=== PATIENT | male | born 1945 | race Caucasian/White ===

== ENCOUNTER 2020-03-09 01:24 | Emergency (ER) | payer MEDICARE, OTHER ==
[2020-03-09] MEDS ORDERED: Metoclopramide 10 MG/2 ML SDV IV ONE (01:39)
[2020-03-09] MEDS ORDERED: Sodium Chloride 0.9% 1,000 ML IV SCH (01:45)
--- NOTE | 2020-03-09 01:54 | EDM.PDOC ---
ED HPI GENERAL MEDICAL PROBLEM - General Chief Complaint: General Stated Complaint: feels ill Time Seen by Provider: 03/09/20 01:30 Source of Information: Reports: Patient History Limitations: Reports: No Limitations - History of Present Illness INITIAL COMMENTS - FREE TEXT/NARRATIVE: Patient is a 74 y/o male with PMHx significant for non-hodgkins lymphoma (chemo treatment 2 weeks ago in [place]), who presents with worsening headache x 5 days. He describes the headache as generalized and dull. Associated nausea, light-headedness, and loose stools. He denies chest pain, cough, shortness of breathing, vomiting, rash, vision changes, or numbness/tingling. He is prescribed pain medicine, but doesn't recall the name. - Related Data Allergies Allergy/AdvReac Type Severity Reaction Status Date / Time naproxen [From Naprosyn] Allergy Rash Verified 03/09/20 03:41 ED ROS GENERAL - Review of Systems Review Of Systems: See Below Constitutional: Reports: No Symptoms HEENT: Reports: No Symptoms Respiratory: Reports: No Symptoms Cardiovascular: Reports: No Symptoms GI/Abdominal: Reports: Nausea : Reports: No Symptoms Musculoskeletal: Reports: No Symptoms Skin: Reports: No Symptoms Neurological: Reports: Dizziness, Headache Psychiatric: Reports: No Symptoms ED EXAM, GENERAL - Physical Exam Exam: See Below Exam Limited By: No Limitations General Appearance: Alert, No Apparent Distress Eye Exam: Bilateral Eye: EOMI, PERRL Head: Atraumatic, Normocephalic Neck: Normal Inspection, Supple, Non-Tender, Full Range of Motion Respiratory/Chest: No Respiratory Distress, Lungs Clear, Normal Breath Sounds, No Accessory Muscle Use, Chest Non-Tender Cardiovascular: Normal Peripheral Pulses, Regular Rate, Rhythm, No Edema, No Murmur GI/Abdominal: Normal Bowel Sounds, Soft, Non-Tender, No Distention Extremities: Normal Inspection, Normal Range of Motion, Non-Tender, No Pedal Edema, Normal Capillary Refill Neurological: Alert, Oriented, CN II-XII Intact, Normal Cognition, Normal Gait, No Motor/Sensory Deficits Psychiatric: Normal Affect, Normal Mood Skin Exam: Warm, Dry, Intact, Normal Color, No Rash Lymphatic: No Adenopathy Course - Vital Signs Text/Narrative:: Tylenol and reglan given. 1 L NS bolus given. CT head and labs ordered. All labs and imaging negative. Will discharge home with percocet 5/325 mg PO every 6-8 hours as needed for pain (dispense 3 tabs). Follow up with oncology and PCP for chronic pain management. Drink lots of fluids. - Orders/Labs/Meds Orders: Active Orders 24 hr Category Date Time Status Head wo Cont [CT] Stat Exams 03/09/20 01:38 Taken Ketorolac [Toradol] Med 03/09/20 03:48 Once 30 mg IVPUSH ONETIME ONE Sodium Chloride 0.9% [Normal Saline] 1,000 ml Med 03/09/20 01:45 Active IV ASDIRECTED Medication Orders Sodium Chloride (Normal Saline) 1,000 mls @ 1,000 mls/hr IV ASDIRECTED CHANDANA Last Admin: 03/09/20 01:39 Dose: 1,000 mls/hr Documented by: VIKAS Ketorolac Tromethamine (Toradol) 30 mg IVPUSH ONETIME ONE Stop: 03/09/20 03:49 Labs: Laboratory Tests 03/09/20 03/09/20 03/09/20 Range/Units 02:40 02:40 02:45 WBC 10.4 (4.0-11.0) K/uL RBC 4.44 L (4.50-6.50) M/uL Hgb 14.6 (13.0-18.0) g/dL Hct 41.3 (40.0-54.0) % MCV 93 (76-96) fL MCH 32.9 H (27.0-32.0) pg MCHC 35.4 H (31.0-35.0) g/dL RDW 13.0 (11.0-16.0) % Plt Count 232 (150-400) K/uL MPV 10.5 H (6.0-10.0) fL Neut % (Auto) 84.1 H (45.0-70.0) % Lymph % (Auto) 7.2 L (20.0-40.0) % [place] % (Auto) 8.6 (3.0-10.0) % Eos % (Auto) 0.0 L (1.0-5.0) % Baso % (Auto) 0.1 (0.0-0.5) % Neut # (Auto) 8.77 H (2.00-7.50) K/uL Lymph # (Auto) 0.75 L (1.50-4.00) K/uL [place] # (Auto) 0.90 H (0.20-0.80) K/uL Eos # (Auto) 0.00 L (0.04-0.40) K/uL Baso # (Auto) 0.01 L (0.02-0.10) K/uL Sodium 134 L (136-145) mmol/L Potassium 3.4 L (3.5-5.1) mmol/L Chloride 96 L (98-107) mmol/L Carbon Dioxide 22.9 (21.0-32.0) mmol/L Anion Gap 18.5 H (5.0-15.0) mmol/L BUN 14 (8-26) mg/dL Creatinine 1.16 (0.70-1.30) mg/dL Est Cr Clr Drug Dosing TNP Estimated GFR (MDRD) > 60 (>60) MLS/MIN BUN/Creatinine Ratio 12.1 (6-25) Glucose 152 H (74-100) mg/dL Lactic Acid (0.4-2.0) mmol/L Calcium 9.5 (8.5-10.1) mg/dL Total Bilirubin 1.1 H (0.0-1.0) mg/dL AST 15 (15-37) U/L ALT 20 (12-78) U/L Alkaline Phosphatase 79 (46-116) U/L Total Protein 7.5 (6.4-8.2) g/dL Albumin 3.5 (3.4-5.0) g/dL Globulin 4.0 (2.2-4.2) g/dL Albumin/Globulin Ratio 0.9 (0.8-2.0) SARS CoV-2 RNA Rapid TEODORO Negative 03/09/20 Range/Units 02:45 WBC (4.0-11.0) K/uL RBC (4.50-6.50) M/uL Hgb (13.0-18.0) g/dL Hct (40.0-54.0) % MCV (76-96) fL MCH (27.0-32.0) pg MCHC (31.0-35.0) g/dL RDW (11.0-16.0) % Plt Count (150-400) K/uL MPV (6.0-10.0) fL Neut % (Auto) (45.0-70.0) % Lymph % (Auto) (20.0-40.0) % [place] % (Auto) (3.0-10.0) % Eos % (Auto) (1.0-5.0) % Baso % (Auto) (0.0-0.5) % Neut # (Auto) (2.00-7.50) K/uL Lymph # (Auto) (1.50-4.00) K/uL [place] # (Auto) (0.20-0.80) K/uL Eos # (Auto) (0.04-0.40) K/uL Baso # (Auto) (0.02-0.10) K/uL Sodium (136-145) mmol/L Potassium (3.5-5.1) mmol/L Chloride (98-107) mmol/L Carbon Dioxide (21.0-32.0) mmol/L Anion Gap (5.0-15.0) mmol/L BUN (8-26) mg/dL Creatinine (0.70-1.30) mg/dL Est Cr Clr Drug Dosing Estimated GFR (MDRD) (>60) MLS/MIN BUN/Creatinine Ratio (6-25) Glucose (74-100) mg/dL Lactic Acid 1.7 (0.4-2.0) mmol/L Calcium (8.5-10.1) mg/dL Total Bilirubin (0.0-1.0) mg/dL AST (15-37) U/L ALT (12-78) U/L Alkaline Phosphatase (46-116) U/L Total Protein (6.4-8.2) g/dL Albumin (3.4-5.0) g/dL Globulin (2.2-4.2) g/dL Albumin/Globulin Ratio (0.8-2.0) SARS CoV-2 RNA Rapid TEODORO Meds: Medications Generic Name Dose Route Start Last Admin Trade Name Freq PRN Reason Stop Dose Admin Sodium Chloride 1,000 mls @ 1,000 mls/hr 03/09/20 01:45 03/09/20 01:39 Normal Saline IV 1,000 mls/hr ASDIRECTED CHANDANA Administration Ketorolac Tromethamine 30 mg 11/20/20 03:48 Toradol IVPUSH 03/09/20 03:49 ONETIME ONE Discontinued Medications Generic Name Dose Route Start Last Admin Trade Name Fanny PRBoaz Reason Stop Dose Admin Metoclopramide HCl 20 mg 03/09/20 01:39 03/09/20 01:40 Reglan IV 03/09/20 01:40 20 mg ONETIME ONE Administration Departure - Departure Time of Disposition: 04:00 Disposition: Home, Self-Care 01 Condition: Good Clinical Impression: Headache Qualifiers: Headache type: unspecified Headache chronicity pattern: acute headache Intractability: not intractable Qualified Code(s): R51.9 - Headache, unspecified - Discharge Information *PRESCRIPTION DRUG MONITORING PROGRAM REVIEWED*: Not Applicable *COPY OF PRESCRIPTION DRUG MONITORING REPORT IN PATIENT RADHA: Not Applicable Forms: ED Department Discharge - My Orders Last 24 Hours: My Active Orders 03/09/20 01:38 Head wo Cont [CT] Stat 03/09/20 01:45 Sodium Chloride 0.9% [Normal Saline] 1,000 ml IV ASDIRECTED 03/09/20 03:48 Ketorolac [Toradol] 30 mg IVPUSH ONETIME ONE - Assessment/Plan Last 24 Hours: My Active Orders 03/09/20 01:38 Head wo Cont [CT] Stat 03/09/20 01:45 Sodium Chloride 0.9% [Normal Saline] 1,000 ml IV ASDIRECTED 03/09/20 03:48 Ketorolac [Toradol] 30 mg IVPUSH ONETIME ONE
[2020-03-09] MEDS ORDERED: Ketorolac 30 MG/ML SDV IVPUSH ONE (03:48)
[2020-03-09] MEDS ORDERED: Acetaminophen/oxyCODONE 325-5 MG Tab ONE (04:00)
[2020-03-09] MEDS ORDERED: Acetaminophen 325 MG Tab PO STA (06:11)
[2020-03-09 06:17] VITALS: BP 134/78; PULSE 106
--- NOTE | 2020-03-09 09:57 | CT ---
DATE OF SERVICE: 03/09/20 CLINICAL DATA: Headache UNENHANCED BRAIN CT: Multislice acquisition through the brain without IV contrast was performed. No priors. There is diffuse cerebral atrophy. No masses or mass effect. No intracranial hemorrhage. No evidence of acute or subacute infarct. No osseous abnormalities. IMPRESSION: No acute intracranial abnormalities. [id number] [facility]
== END 2020-03-09 04:20 | disposition home or self-care (01) ==
LOC: MERGE 01:24 → LB.ED 01:24
DX: R51.9 Headache, unspecified (principal); R42 Dizziness and giddiness; R11.0 Nausea; R19.7 Diarrhea, unspecified; Z88.8 Allergy status to other drugs, medicaments and biological substances; Z20.828 Contact with and (suspected) exposure to other viral communicable diseases
CPT/HCPCS: 36415; 70450; 80053; 83605; 85025; 96374; 96375; 99284-25; A9270-GY; J1885; J2765; J7030; U0002

== ENCOUNTER 2020-06-25 08:28 | Emergency (ER) | payer MEDICARE, OTHER ==
--- NOTE | 2020-06-25 09:35 | EDM.PDOC ---
ED HPI GENERAL MEDICAL PROBLEM - General Chief Complaint: Chest Pain Stated Complaint: CHEST PAIN Time Seen by Provider: 06/25/20 09:15 Source of Information: Reports: Patient, RN History Limitations: Reports: No Limitations - History of Present Illness Onset: Gradual, Other (2 months) Duration: Week(s): Location: Reports: Other (chest) Severity: Mild Improves with: Reports: Rest Worsens with: Reports: None Associated Symptoms: Reports: Chest Pain Treatments [employer] WRITER: Reports: Aspirin Mid-Sternal Chest Pain Score (Numeric/FACES): 2 - Related Data Allergies Allergy/AdvReac Type Severity Reaction Status Date / Time naproxen Allergy Hives Verified 06/25/20 08:47 Home Meds: Home Meds Aspirin [Adult Low Dose Aspirin EC] 81 mg PO DAILY 03/25/14 [History] Metoprolol Tartrate [Lopressor] 100 mg PO BID 03/25/14 [History] Ranitidine HCl 150 mg PO BID 03/25/14 [History] Tamsulosin HCl [Flomax] 2 tab PO DAILY 03/25/14 [History] atorvaSTATin Calcium [Atorvastatin Calcium] 10 mg PO DAILY 03/25/14 [History] Sennosides/Docusate Sodium [Senna-Docusate Sodium] 1 tab PO DAILY 09/11/15 [History] Zolpidem [Ambien] 5 mg PO BEDTIME PRN 06/25/20 [History] amLODIPine [Norvasc] 5 mg PO DAILY 06/25/20 [History] Past Medical History HEENT History: Reports: Hard of Hearing, Impaired Vision Other HEENT History: Patient has another chart Cardiovascular History: Reports: High Cholesterol, Hypertension Gastrointestinal History: Reports: GERD, Other (See Below) Other Gastrointestinal History: Acute Diverticulitis June 2015 Genitourinary History: Reports: Prostate Disorder Oncologic (Cancer) History: Reports: Non-Hodgkin's Lymphoma - Past Surgical History Cardiovascular Surgical History: Reports: Other (See Below) Other Cardiovascular Surgeries/Procedures: Has had 4 angiograms-no bypass or stent placements GI Surgical History: Reports: None Male Surgical History: Reports: None Social & Family History - Family History Family Medical History: No Pertinent Family History - Tobacco Use Tobacco Use Status *Q: Unknown Ever Used Tobacco Second Hand Smoke Exposure: No - Caffeine Use Caffeine Use: Reports: Coffee - Recreational Drug Use Recreational Drug Use: No ED ROS GENERAL - Review of Systems Review Of Systems: Comprehensive ROS is negative, except as noted in HPI. Cardiovascular: Reports: Chest Pain, Other (At rest) ED EXAM, GENERAL - Physical Exam Exam: See Below Exam Limited By: No Limitations General Appearance: Alert, No Apparent Distress Eye Exam: Bilateral Eye: PERRL Nose: Normal Inspection, Normal Mucosa Throat/Mouth: Normal Inspection, Normal Lips, Normal Teeth Head: Atraumatic, Normocephalic Neck: Normal Inspection, Supple, Non-Tender, Full Range of Motion Respiratory/Chest: No Respiratory Distress, Lungs Clear, Normal Breath Sounds Cardiovascular: Normal Peripheral Pulses, Regular Rate, Rhythm, No Edema Peripheral Pulses: 2+: Radial (L), Radial (R) GI/Abdominal: Normal Bowel Sounds, Soft, Non-Tender (Male) Exam: No Hernia Extremities: Normal Inspection, Normal Range of Motion, Non-Tender Neurological: Alert, Oriented, CN II-XII Intact, Normal Cognition, Normal Gait Psychiatric: Normal Affect, Normal Mood Skin Exam: Warm, Dry, Intact, Normal Color, No Rash Lymphatic: No Adenopathy Course - Vital Signs Last Recorded V/S: Last Vital Signs Temp 36.2 C 06/25/20 08:28 Pulse 73 06/25/20 08:31 Resp 14 06/25/20 08:31 BP 153/87 H 06/25/20 08:31 Pulse Ox 97 06/25/20 08:31 - Orders/Labs/Meds Orders: Active Orders 24 hr Category Date Time Status EKG Documentation Completion [RC] ASDIRECTED Care 06/25/20 08:47 Active Chest 1V Frontal [CR] Stat Exams 06/25/20 08:47 Taken Labs: Laboratory Tests 06/25/20 06/25/20 Range/Units 08:36 08:36 WBC 4.0 D (4.0-11.0) K/uL RBC 3.88 L (4.50-6.50) M/uL Hgb 13.0 (13.0-18.0) g/dL Hct 36.6 L (40.0-54.0) % MCV 94 (76-96) fL MCH 33.5 H (27.0-32.0) pg MCHC 35.5 H (31.0-35.0) g/dL RDW 13.3 (11.0-16.0) % Plt Count 128 L D (150-400) K/uL MPV 9.6 (6.0-10.0) fL Neut % (Auto) 69.6 (45.0-70.0) % Lymph % (Auto) 10.6 L (20.0-40.0) % [place] % (Auto) 19.6 H (3.0-10.0) % Eos % (Auto) 0.0 L (1.0-5.0) % Baso % (Auto) 0.2 (0.0-0.5) % Neut # (Auto) 2.81 (2.00-7.50) K/uL Lymph # (Auto) 0.43 L (1.50-4.00) K/uL [place] # (Auto) 0.79 (0.20-0.80) K/uL Eos # (Auto) 0.00 L (0.04-0.40) K/uL Baso # (Auto) 0.01 L (0.02-0.10) K/uL Sodium 140 (136-145) mmol/L Potassium 3.7 (3.5-5.1) mmol/L Chloride 105 (98-107) mmol/L Carbon Dioxide 25.9 (21.0-32.0) mmol/L Anion Gap 12.8 (5.0-15.0) mmol/L BUN 12 D (8-26) mg/dL Creatinine 0.87 (0.70-1.30) mg/dL Est Cr Clr Drug Dosing 81.77 mL/min Estimated GFR (MDRD) > 60 (>60) MLS/MIN BUN/Creatinine Ratio 13.8 (6-25) Glucose 102 H (74-100) mg/dL Calcium 8.7 (8.5-10.1) mg/dL Total Bilirubin 0.6 D (0.0-1.0) mg/dL AST 23 (15-37) U/L ALT 20 (12-78) U/L Alkaline Phosphatase 74 (46-116) U/L Troponin I < 0.017 (0.000-0.060) ng/mL B-Natriuretic Peptide 148 H (0-125) pg/mL Total Protein 7.1 (6.4-8.2) g/dL Albumin 3.7 (3.4-5.0) g/dL Globulin 3.4 (2.2-4.2) g/dL Albumin/Globulin Ratio 1.1 (0.8-2.0) Departure - Departure Time of Disposition: 09:40 Disposition: Home, Self-Care 01 Condition: Good Clinical Impression: Angina at rest Instructions: Nonspecific Chest Pain, Adult, [id number], Angina, [id number], Decision Aid - Coronary Artery Disease Referrals: PCP,None [Primary Care Provider] - Forms: ED Department Discharge Additional Instructions: Contact Dr. Wilson office at [facility] today to schedule appointment for further evaluation. Take nitroglycerin as needed for chest pain as directed: 1 tablet dissolved under tongue, every 5 minutes for up to 3 doses. Should pain return, worsen, or persist, return to ER for further evaluation. Diet and activity as tolerated. Follow up as instructed. Call with any questions. Sepsis Event Note (ED) - Evaluation Sepsis Screening Result: No Definite Risk - Focused Exam Vital Signs: Vital Signs Temp Pulse Resp BP Pulse Ox 06/25/20 08:31 73 14 153/87 H 97 06/25/20 08:28 36.2 C 73 14 136/77 98 - My Orders Last 24 Hours: My Active Orders 06/25/20 08:47 EKG Documentation Completion [RC] ASDIRECTED Chest 1V Frontal [CR] Stat - Assessment/Plan Last 24 Hours: My Active Orders 06/25/20 08:47 EKG Documentation Completion [RC] ASDIRECTED Chest 1V Frontal [CR] Stat Assessment:: Angina Plan: Follow up with Dr. Wilson this week, call today. Take Nitro if needed for pain. Return to ED for new or worsening symptoms.
--- NOTE | 2020-06-25 10:02 | CR ---
DATE OF SERVICE: 06/25/2020 CLINICAL DATA: Chest pain PA and lateral chest: Comparison is made to a prior exam dated 25 April 2020. The patient is in an apical lordotic position. The heart size is stable. There is calcification of the aortic arch. The pulmonary vasculature does appear to be more prominent than on the prior exam with some cephalization of flow suggesting mild pulmonary venous congestion. There is persistent eventration of the right hemidiaphragm with atelectatic changes in the right lung base. The lungs are otherwise clear. No pneumothorax. No pleural effusions. There is a mass posterior to the heart containing an air-fluid level consistent with a large hiatal hernia. Thank you for allowing us to participate in the care of your patient MTDD
[2020-06-25 11:10] VITALS: BP 151/87; PULSE 72
[2020-06-26] MEDS ORDERED: Sodium Chloride 0.9% 10 ML Syringe FLUSH PRN (11:14)
== END 2020-06-25 09:37 | disposition home or self-care (01) ==
LOC: LB.ED 08:28
DX: I20.9 Angina pectoris, unspecified (principal); E78.00 Pure hypercholesterolemia, unspecified; I10 Essential (primary) hypertension; K21.9 Gastro-esophageal reflux disease without esophagitis; Z88.8 Allergy status to other drugs, medicaments and biological substances; Z79.82 Long term (current) use of aspirin; Z79.899 Other long term (current) drug therapy
CPT/HCPCS: 36415; 71045; 80053; 83880; 84484; 85025; 93005; 99284; 99285-25

== ENCOUNTER 2021-04-30 07:22 | Emergency (ER) | payer MEDICARE, OTHER ==
[2021-04-30 07:44] VITALS: BP 142/95; PULSE 85
== END 2021-04-30 08:40 | disposition home or self-care (01) ==
LOC: LB.ED 07:22
DX: U07.1 COVID-19 (principal); J02.8 Acute pharyngitis due to other specified organisms; B97.89 Other viral agents as the cause of diseases classified elsewhere; I10 Essential (primary) hypertension; E78.00 Pure hypercholesterolemia, unspecified; K21.9 Gastro-esophageal reflux disease without esophagitis; N42.9 Disorder of prostate, unspecified; Z88.6 Allergy status to analgesic agent; Z79.82 Long term (current) use of aspirin; Z79.899 Other long term (current) drug therapy
CPT/HCPCS: 99283; U0002

== ENCOUNTER 2021-05-01 04:58 | Emergency (ER) | payer MEDICARE, OTHER ==
[2021-05-01 05:20] VITALS: BP 152/88; PULSE 120
[2021-05-01] MEDS ORDERED: Ketorolac 30 MG/ML SDV IM ONE (05:37)
[2021-05-01] MEDS ORDERED: methylPREDNISolone Sodium Succinate 125 MG/2 ML SDV IM ONE (05:39)
[2021-05-01] MEDS ORDERED: Ketorolac 30 MG/ML SDV ONE (06:00)
[2021-05-01] MEDS ORDERED: methylPREDNISolone Sodium Succinate 125 MG/2 ML SDV ONE (06:00)
[2021-05-01] MEDS ORDERED: traMADol 50 MG Tab ONE (06:00)
== END 2021-05-01 06:03 | disposition home or self-care (01) ==
LOC: LB.ED 04:58
DX: U07.1 COVID-19 (principal); J02.8 Acute pharyngitis due to other specified organisms; E78.00 Pure hypercholesterolemia, unspecified; I10 Essential (primary) hypertension; K21.9 Gastro-esophageal reflux disease without esophagitis; Z87.891 Personal history of nicotine dependence; Z86.16 Personal history of COVID-19; Z88.5 Allergy status to narcotic agent; Z79.82 Long term (current) use of aspirin; Z79.899 Other long term (current) drug therapy
CPT/HCPCS: 96372; 99283; A9270-GY; J1885; J2930

== ENCOUNTER 2021-08-01 13:10 | Emergency (ER) | payer MEDICARE, OTHER ==
[2021-08-01] MEDS: Aspirin 81 MG Tab.Chew PO ONE ×3 (13:25→17:50)
[2021-08-01] MEDS: Nitroglycerin 0.4 MG Tab.SL SL PRN ×3 (13:30→13:45)
[2021-08-01 14:04] VITALS: PULSE 99
[2021-08-01 17:46] VITALS: BP 158/94
== END 2021-08-01 15:30 | disposition home or self-care (01) ==
LOC: LB.ED 13:10
DX: R07.89 Other chest pain (principal); K21.9 Gastro-esophageal reflux disease without esophagitis; I10 Essential (primary) hypertension; Z79.82 Long term (current) use of aspirin; Z86.16 Personal history of COVID-19; Z88.8 Allergy status to other drugs, medicaments and biological substances; Z79.899 Other long term (current) drug therapy
CPT/HCPCS: 36415; 71045; 80048; 84484; 93005; 99283; 99285-25; A9270-GY

== ENCOUNTER 2022-01-29 09:16 | Emergency (ER) | payer MEDICARE, OTHER ==
[2022-01-29 10:10] LABS: ESTIMATED GFR 91 mL/min (>60)
[2022-01-29 14:58] VITALS: BP 151/81; PULSE 67
== END 2022-01-29 10:50 | disposition home or self-care (01) ==
LOC: LB.ED 09:16
DX: E87.1 Hypo-osmolality and hyponatremia (principal); E78.00 Pure hypercholesterolemia, unspecified; I10 Essential (primary) hypertension; K21.9 Gastro-esophageal reflux disease without esophagitis; Z88.8 Allergy status to other drugs, medicaments and biological substances; Z79.82 Long term (current) use of aspirin; Z79.899 Other long term (current) drug therapy
CPT/HCPCS: 36415; 71045; 80053; 84484; 85025; 85610; 93005; 93010; 99282; 99285

== ENCOUNTER 2022-11-26 11:41 | Emergency (ER) | payer MEDICARE, OTHER ==
[2022-11-26 12:12] LABS: BASOPHILS ABSOLUTE AUTO 0.02 K/uL (0.02-0.10); BASOPHILS PERCENT AUTO 0.2 % (0.0-0.5); EOSINOPHILS ABSOLUTE AUTO 0.16 K/uL (0.04-0.40); EOSINOPHILS PERCENT AUTO 1.8 % (1.0-5.0); HEMATOCRIT 39.8 % (40.0-54.0); LYMPHOCYTES ABSOLUTE AUTO 1.83 K/uL (1.50-4.00); LYMPHOCYTES PERCENT AUTO 21.1 % (20.0-40.0); MEAN CORPUSCULAR HEMOGLOBIN 33.2 pg (27.0-32.0); MEAN CORPUSCULAR HGB CONC 35.2 g/dL (31.0-35.0); MEAN CORPUSCULAR VOLUME 94 fL (76-96); MEAN PLATELET VOLUME 10.6 fL (6.0-10.0); MONOCYTES ABSOLUTE AUTO 0.64 K/uL (0.20-0.80); MONOCYTES PERCENT AUTO 7.4 % (3.0-10.0); NEUTROPHILS ABSOLUTE AUTO 6.01 K/uL (2.00-7.50); NEUTROPHILS PERCENT AUTO 69.5 % (45.0-70.0); PLATELET COUNT,PLT 197 K/uL (150-400); RED BLOOD CELL COUNT 4.22 M/uL (4.50-6.50); RED CELL DISTRIBUTION WIDTH 12.3 % (11.0-16.0); WHITE BLOOD CELL COUNT,WBC 8.7 K/uL (4.0-11.0)
[2022-11-26] MEDS ORDERED: Sodium Chloride 0.9% 10 ML Syringe FLUSH PRN (12:19)
[2022-11-26 12:32] LABS: PROTHROMBIN TIME 10.2 sec (9.0-11.5)
[2022-11-26 12:34] LABS: A/G RATIO 1.1 (0.8-2.0); ALBUMIN 3.8 g/dL (3.4-5.0); ANION GAP 12.2 mmol/L (5.0-15.0); BILIRUBIN TOTAL 0.8 mg/dL (0.0-1.0); BUN/CREATININE RATIO 16.7 (6-25); CALCIUM 9.3 mg/dL (8.5-10.1); CARBON DIOXIDE,CO2 26.9 mmol/L (21.0-32.0); CREATININE 0.96 mg/dL (0.70-1.30); EST CRCL DRUG DOSING (CG) 72.97 mL/min; POTASSIUM,K 3.1 mmol/L (3.5-5.1); PROTEIN TOTAL,TP 7.4 g/dL (6.4-8.2); TROPONIN I HIGH SENSITIVITY 4.4 pg/ml (<=60.4)
[2022-11-26 15:01] VITALS: BP 151/82; PULSE 84
== END 2022-11-26 12:55 | disposition home or self-care (01) ==
LOC: LB.ED 11:41
DX: R07.9 Chest pain, unspecified (principal); Z87.891 Personal history of nicotine dependence; Z86.16 Personal history of COVID-19; I10 Essential (primary) hypertension; E78.00 Pure hypercholesterolemia, unspecified; M19.90 Unspecified osteoarthritis, unspecified site; K21.9 Gastro-esophageal reflux disease without esophagitis; Z79.899 Other long term (current) drug therapy; Z79.82 Long term (current) use of aspirin; Z88.8 Allergy status to other drugs, medicaments and biological substances
CPT/HCPCS: 36415; 71045; 80053; 83880; 84484; 85025; 85610; 85730; 93005; 93010; 99283; 99285

== ENCOUNTER 2023-03-20 12:50 | Emergency (ER) | payer MEDICARE, OTHER ==
[2023-03-20] MEDS ORDERED: Sodium Chloride 0.9% 10 ML Syringe FLUSH PRN (12:56)
[2023-03-20 13:13] LABS: HEMATOCRIT 38.4 % (40.0-54.0); HEMOGLOBIN 13.5 g/dL (13.0-18.0); MEAN CORPUSCULAR HEMOGLOBIN 33.6 pg (27.0-32.0); MEAN CORPUSCULAR HGB CONC 35.2 g/dL (31.0-35.0); MEAN PLATELET VOLUME 10.4 fL (6.0-10.0); RED BLOOD CELL COUNT 4.02 M/uL (4.50-6.50); RED CELL DISTRIBUTION WIDTH 12.1 % (11.0-16.0); WHITE BLOOD CELL COUNT,WBC 7.2 K/uL (4.0-11.0)
[2023-03-20 13:36] LABS: A/G RATIO 1.2 (0.8-2.0); ALBUMIN 3.7 g/dL (3.4-5.0); BUN/CREATININE RATIO 18.5 (6-25); CALCIUM 9.1 mg/dL (8.5-10.1); CARBON DIOXIDE,CO2 24.5 mmol/L (21.0-32.0); CREATININE 1.08 mg/dL (0.70-1.30); EST CRCL DRUG DOSING (CG) 62.94 mL/min; MAGNESIUM 1.6 mg/dL (1.8-2.4); PHOSPHORUS 2.4 mg/dL (2.5-4.9); POTASSIUM,K 3.5 mmol/L (3.5-5.1); PROTEIN TOTAL,TP 6.9 g/dL (6.4-8.2); TROPONIN I HIGH SENSITIVITY 7.9 pg/ml (<=60.4)
[2023-03-20] MEDS ORDERED: Sodium Chloride 0.9% 1,000 ML IV SCH (16:30)
[2023-03-20 17:51] VITALS: BP 151/85; PULSE 72
== END 2023-03-20 17:25 | disposition home or self-care (01) ==
LOC: LB.ED 12:50
DX: E83.42 Hypomagnesemia (principal); I10 Essential (primary) hypertension; E78.00 Pure hypercholesterolemia, unspecified; K21.9 Gastro-esophageal reflux disease without esophagitis; Z88.6 Allergy status to analgesic agent; Z86.16 Personal history of COVID-19; Z79.82 Long term (current) use of aspirin; Z79.899 Other long term (current) drug therapy
CPT/HCPCS: 36415; 70450; 71045; 71250; 74176; 80053; 83735; 84100; 84484; 85027; 93005; 93010; 96365; 99283; 99285-25; J3475; J7030

== ENCOUNTER 2023-04-10 08:51 | Emergency (ER) | payer OTHER, MEDICARE ==
[2023-04-10] MEDS ORDERED: Sodium Chloride 0.9% 10 ML Syringe FLUSH PRN (09:02)
[2023-04-10] MEDS: Sodium Chloride 0.9% 500 ML IV ONE (09:20)
[2023-04-10 09:23] LABS: BASOPHILS ABSOLUTE AUTO 0.02 K/uL (0.02-0.10); BASOPHILS PERCENT AUTO 0.3 % (0.0-0.5); EOSINOPHILS ABSOLUTE AUTO 0.23 K/uL (0.04-0.40); EOSINOPHILS PERCENT AUTO 3.3 % (1.0-5.0); HEMATOCRIT 37.3 % (40.0-54.0); HEMOGLOBIN 13.1 g/dL (13.0-18.0); LYMPHOCYTES ABSOLUTE AUTO 1.58 K/uL (1.50-4.00); LYMPHOCYTES PERCENT AUTO 22.6 % (20.0-40.0); MEAN CORPUSCULAR HEMOGLOBIN 33.2 pg (27.0-32.0); MEAN CORPUSCULAR HGB CONC 35.1 g/dL (31.0-35.0); MEAN CORPUSCULAR VOLUME 94 fL (76-96); MONOCYTES PERCENT AUTO 11.4 % (3.0-10.0); NEUTROPHILS ABSOLUTE AUTO 4.37 K/uL (2.00-7.50); NEUTROPHILS PERCENT AUTO 62.4 % (45.0-70.0); PLATELET COUNT,PLT 222 K/uL (150-400); RED BLOOD CELL COUNT 3.95 M/uL (4.50-6.50); RED CELL DISTRIBUTION WIDTH 11.7 % (11.0-16.0)
[2023-04-10 09:46] LABS: A/G RATIO 1.1 (0.8-2.0); ALBUMIN 3.7 g/dL (3.4-5.0); ANION GAP 15.4 mmol/L (5.0-15.0); BILIRUBIN TOTAL 0.7 mg/dL (0.0-1.0); BUN/CREATININE RATIO 11.5 (6-25); CALCIUM 9.6 mg/dL (8.5-10.1); CARBON DIOXIDE,CO2 24.4 mmol/L (21.0-32.0); CREATININE 1.04 mg/dL (0.70-1.30); EST CRCL DRUG DOSING (CG) 65.36 mL/min; MAGNESIUM 1.8 mg/dL (1.8-2.4); POTASSIUM,K 3.8 mmol/L (3.5-5.1); PROTEIN TOTAL,TP 7.1 g/dL (6.4-8.2); TROPONIN I HIGH SENSITIVITY 4.2 pg/ml (<=60.4)
[2023-04-10] MEDS ORDERED: ALPRAZolam 0.25 MG Tab ONE (09:50)
[2023-04-10] MEDS: ALPRAZolam 0.25 MG Tab PO ONE (09:50)
[2023-04-10 11:10] VITALS: BP 161/91; PULSE 71
== END 2023-04-10 10:30 | disposition home or self-care (01) ==
LOC: LB.ED 08:51
DX: F41.9 Anxiety disorder, unspecified (principal); I10 Essential (primary) hypertension; E78.00 Pure hypercholesterolemia, unspecified; K21.9 Gastro-esophageal reflux disease without esophagitis; M19.90 Unspecified osteoarthritis, unspecified site; Z86.16 Personal history of COVID-19; Z79.82 Long term (current) use of aspirin; Z79.899 Other long term (current) drug therapy
CPT/HCPCS: 36415; 80053; 83735; 84484; 85025; 93005; 93010; 96360; 99283; 99285; A9270; J7040

== ENCOUNTER 2023-04-14 08:10 | Emergency (ER) | payer MEDICARE, OTHER ==
[2023-04-14] MEDS ORDERED: Aspirin 81 MG Tab.Chew PO ONE (08:21)
[2023-04-14] MEDS ORDERED: hydrOXYzine HCl 25 MG Tab PO ONE (08:22)
[2023-04-14] MEDS ORDERED: Sodium Chloride 0.9% 10 ML Syringe FLUSH PRN ×2 (08:23→08:24)
[2023-04-14 09:01] VITALS: BP 141/92; PULSE 70
== END 2023-04-14 09:20 | disposition home or self-care (01) ==
LOC: LB.ED 08:10
DX: F41.9 Anxiety disorder, unspecified (principal); R45.89 Other symptoms and signs involving emotional state; I10 Essential (primary) hypertension; E78.00 Pure hypercholesterolemia, unspecified; K21.9 Gastro-esophageal reflux disease without esophagitis; M19.90 Unspecified osteoarthritis, unspecified site; Z88.6 Allergy status to analgesic agent; Z86.16 Personal history of COVID-19; Z79.82 Long term (current) use of aspirin; Z79.899 Other long term (current) drug therapy
CPT/HCPCS: 36415; 84484; 93005; 99285; A9270-GY

== ENCOUNTER 2023-08-01 18:24 | Emergency (ER) | payer MEDICARE, OTHER ==
[2023-08-01] MEDS ORDERED: Sodium Chloride 0.9% 10 ML Syringe FLUSH PRN (18:41)
[2023-08-01 19:15] LABS: HEMATOCRIT 40.3 % (40.0-54.0); HEMOGLOBIN 14.2 g/dL (13.0-18.0); MEAN CORPUSCULAR HGB CONC 35.2 g/dL (31.0-35.0); MEAN PLATELET VOLUME 10.2 fL (6.0-10.0); RED BLOOD CELL COUNT 4.3 M/uL (4.50-6.50); RED CELL DISTRIBUTION WIDTH 12.4 % (11.0-16.0); WHITE BLOOD CELL COUNT,WBC 7.9 K/uL (4.0-11.0)
[2023-08-01] MEDS: Sodium Chloride 0.9% 1,000 ML IV SCH (19:15)
[2023-08-01] MEDS: LORazepam 1 MG Tab ONE (19:15)
[2023-08-01] MEDS: LORazepam 2 MG/ML SDV ONE (19:16)
[2023-08-01] MEDS: LORazepam 2 MG/ML SDV IVPUSH ONE (19:17)
[2023-08-01 19:34] LABS: ANION GAP 13.1 mmol/L (5.0-15.0); BLOOD UREA NITROGEN,BUN 10 mg/dL (8-26); CALCIUM 9.3 mg/dL (8.5-10.1); CARBON DIOXIDE,CO2 26.4 mmol/L (21.0-32.0); CHLORIDE,CL 100 mmol/L (98-107); CREATININE 0.77 mg/dL (0.70-1.30); ESTIMATED GFR 93 mL/min (>60); GLUCOSE RANDOM 101 mg/dL (74-100); MAGNESIUM 1.5 mg/dL (1.8-2.4); PHOSPHORUS 2.4 mg/dL (2.5-4.9); POTASSIUM,K 3.5 mmol/L (3.5-5.1); SODIUM,NA 136 mmol/L (136-145); TROPONIN I HIGH SENSITIVITY 5.5 pg/ml (<=60.4)
[2023-08-01] MEDS: Metoprolol Tartrate 50 MG Tab PO SCH (20:15)
[2023-08-01] MEDS: Metoprolol Tartrate 50 MG Tab ONE (20:37)
[2023-08-01 21:09] VITALS: BP 152/86; PULSE 64
== END 2023-08-01 21:40 | disposition home or self-care (01) ==
LOC: LB.ED 18:24
DX: E83.42 Hypomagnesemia (principal); F10.90 Alcohol use, unspecified, uncomplicated; F41.9 Anxiety disorder, unspecified; E78.00 Pure hypercholesterolemia, unspecified; I10 Essential (primary) hypertension; K21.9 Gastro-esophageal reflux disease without esophagitis; E66.9 Obesity, unspecified; Z88.6 Allergy status to analgesic agent; Z79.82 Long term (current) use of aspirin; Z79.899 Other long term (current) drug therapy; Z86.19 Personal history of other infectious and parasitic diseases; Z86.16 Personal history of COVID-19; Z78.9 Other specified health status; Y90.9 Presence of alcohol in blood, level not specified
CPT/HCPCS: 36415; 80048; 83735; 84100; 84443; 84484; 85027; 85379; 93005; 96361; 96365; 96375; 99285-25; A9270-GY; J2060; J3475; J7030

== ENCOUNTER 2023-09-24 12:25 | Day surgery (SDC) | payer MEDICARE, OTHER ==
[2023-09-24] MEDS: Sodium Chloride 0.9% 1,000 ML IV SCH (13:21)
[2023-09-24] MEDS ORDERED: Propofol 200 MG/20 ML SDV ONE (14:45)
[2023-09-24 15:03] VITALS: BP 125/67; PULSE 69
== END 2023-09-24 15:35 | disposition home or self-care (01) ==
LOC: LB.SDS 12:25
PROVIDERS: ATTEND Surgery
DX: K31.89 Other diseases of stomach and duodenum (principal); I10 Essential (primary) hypertension; K21.9 Gastro-esophageal reflux disease without esophagitis; E78.00 Pure hypercholesterolemia, unspecified; N40.0 Benign prostatic hyperplasia without lower urinary tract symptoms; Z79.82 Long term (current) use of aspirin; Z79.899 Other long term (current) drug therapy
CPT/HCPCS: J2704; J7030

== ENCOUNTER 2024-02-12 19:10 | Emergency (ER) | payer OTHER, MEDICARE ==
[2024-02-12] MEDS: Sodium Chloride 0.9% 10 ML Syringe FLUSH PRN (19:25)
[2024-02-12] MEDS: Aspirin 81 MG Tab.Chew PO ONE (19:36)
[2024-02-12 20:27] LABS: HEMOGLOBIN 12.8 g/dL (13.0-18.0); MEAN CORPUSCULAR HEMOGLOBIN 33.2 pg (27.0-32.0); MEAN CORPUSCULAR HGB CONC 34.6 g/dL (31.0-35.0); MEAN PLATELET VOLUME 10.5 fL (6.0-10.0); RED BLOOD CELL COUNT 3.85 M/uL (4.50-6.50); RED CELL DISTRIBUTION WIDTH 12.2 % (11.0-16.0); WHITE BLOOD CELL COUNT,WBC 7.3 K/uL (4.0-11.0)
[2024-02-12 20:39] LABS: ANION GAP 12.6 mmol/L (5.0-15.0); BUN/CREATININE RATIO 12.6 (6-25); CARBON DIOXIDE,CO2 28.1 mmol/L (21.0-32.0); CREATININE 0.87 mg/dL (0.70-1.30); EST CRCL DRUG DOSING (CG) 79.28 mL/min; MAGNESIUM 1.7 mg/dL (1.8-2.4); POTASSIUM,K 3.7 mmol/L (3.5-5.1); TROPONIN I HIGH SENSITIVITY 5.2 pg/ml (<=60.4)
[2024-02-12 21:55] VITALS: BP 153/96; PULSE 73
== END 2024-02-12 21:38 | disposition home or self-care (01) ==
LOC: LB.ED 19:12
DX: R07.89 Other chest pain (principal); I10 Essential (primary) hypertension; E78.00 Pure hypercholesterolemia, unspecified; K21.9 Gastro-esophageal reflux disease without esophagitis; E66.9 Obesity, unspecified; Z86.16 Personal history of COVID-19; Z79.899 Other long term (current) drug therapy; Z79.82 Long term (current) use of aspirin; Z79.01 Long term (current) use of anticoagulants; Z88.6 Allergy status to analgesic agent; Z68.31 Body mass index [BMI] 31.0-31.9, adult
CPT/HCPCS: 36415; 71045; 80048; 83735; 84443; 84484; 85027; 93005; 93010; 99283; 99285; A9270-GY; J3490

== ENCOUNTER 2024-03-29 10:35 | Emergency (ER) | payer OTHER, MEDICARE ==
[2024-03-29] MEDS ORDERED: Sodium Chloride 0.9% 10 ML Syringe FLUSH PRN (10:48)
[2024-03-29] MEDS: Aspirin 81 MG Tab.Chew PO ONE (10:54)
[2024-03-29] MEDS: diazePAM 5 MG/ML MDV IV ONE (11:03)
[2024-03-29 11:05] LABS: HEMATOCRIT 39.8 % (40.0-54.0); HEMOGLOBIN 13.8 g/dL (13.0-18.0); MEAN CORPUSCULAR HEMOGLOBIN 33.2 pg (27.0-32.0); MEAN CORPUSCULAR HGB CONC 34.7 g/dL (31.0-35.0); MEAN PLATELET VOLUME 10.2 fL (6.0-10.0); RED BLOOD CELL COUNT 4.16 M/uL (4.50-6.50); RED CELL DISTRIBUTION WIDTH 12.2 % (11.0-16.0); WHITE BLOOD CELL COUNT,WBC 8.7 K/uL (4.0-11.0)
[2024-03-29 11:32] LABS: ALBUMIN 3.6 g/dL (3.4-5.0); ANION GAP 12.9 mmol/L (5.0-15.0); BILIRUBIN TOTAL 0.7 mg/dL (0.0-1.0); BUN/CREATININE RATIO 14.1 (6-25); CALCIUM 9.6 mg/dL (8.5-10.1); CREATININE 0.99 mg/dL (0.70-1.30); EST CRCL DRUG DOSING (CG) 69.67 mL/min; POTASSIUM,K 3.9 mmol/L (3.5-5.1); PROTEIN TOTAL,TP 7.1 g/dL (6.4-8.2); TROPONIN I HIGH SENSITIVITY 5.9 pg/ml (<=60.4)
[2024-03-29 14:11] VITALS: BP 164/101; PULSE 75
== END 2024-03-29 14:00 | disposition home or self-care (01) ==
LOC: LB.ED 10:35
DX: F41.9 Anxiety disorder, unspecified (principal); I10 Essential (primary) hypertension; E78.00 Pure hypercholesterolemia, unspecified; K21.9 Gastro-esophageal reflux disease without esophagitis; Z86.16 Personal history of COVID-19; Z79.899 Other long term (current) drug therapy; Z79.01 Long term (current) use of anticoagulants; Z79.82 Long term (current) use of aspirin; Z88.6 Allergy status to analgesic agent
CPT/HCPCS: 36415; 71045; 80053; 83735; 83880; 84484; 85027; 85379; 93005; 96374; 96376; 99285-25; J3360

== ENCOUNTER 2024-10-04 18:33 | Emergency (ER) | payer MEDICARE, OTHER ==
[2024-10-04] MEDS: diazePAM 5 MG/ML MDV IV ONE (19:13)
[2024-10-04 19:15] LABS: BASOPHILS ABSOLUTE AUTO 0.02 K/uL (0.02-0.10); BASOPHILS PERCENT AUTO 0.3 % (0.0-0.5); EOSINOPHILS ABSOLUTE AUTO 0.19 K/uL (0.04-0.40); EOSINOPHILS PERCENT AUTO 2.7 % (1.0-5.0); HEMATOCRIT 37.2 % (40.0-54.0); HEMOGLOBIN 13.1 g/dL (13.0-18.0); LYMPHOCYTES ABSOLUTE AUTO 1.62 K/uL (1.50-4.00); LYMPHOCYTES PERCENT AUTO 22.6 % (20.0-40.0); MEAN CORPUSCULAR HEMOGLOBIN 32.7 pg (27.0-32.0); MEAN CORPUSCULAR HGB CONC 35.2 g/dL (31.0-35.0); MEAN CORPUSCULAR VOLUME 93 fL (76-96); MEAN PLATELET VOLUME 10.1 fL (6.0-10.0); MONOCYTES ABSOLUTE AUTO 0.74 K/uL (0.20-0.80); MONOCYTES PERCENT AUTO 10.3 % (3.0-10.0); NEUTROPHILS ABSOLUTE AUTO 4.59 K/uL (2.00-7.50); NEUTROPHILS PERCENT AUTO 64.1 % (45.0-70.0); PLATELET COUNT,PLT 202 K/uL (150-400); RED BLOOD CELL COUNT 4.01 M/uL (4.50-6.50); RED CELL DISTRIBUTION WIDTH 11.9 % (11.0-16.0); WHITE BLOOD CELL COUNT,WBC 7.2 K/uL (4.0-11.0)
[2024-10-04 19:37] LABS: PTT,PARTIAL THROMBOPLSTIN TIME 27.5 SECONDS (24.4-33.2)
[2024-10-04 19:48] LABS: A/G RATIO 1.1 (0.8-2.0); ALBUMIN 3.7 g/dL (3.4-5.0); BILIRUBIN TOTAL 0.7 mg/dL (0.0-1.0); BUN/CREATININE RATIO 14.1 (6-25); CALCIUM 9.7 mg/dL (8.5-10.1); CARBON DIOXIDE,CO2 28.2 mmol/L (21.0-32.0); CREATININE 0.99 mg/dL (0.70-1.30); EST CRCL DRUG DOSING (CG) 68.59 mL/min; MAGNESIUM 1.9 mg/dL (1.8-2.4); POTASSIUM,K 4.2 mmol/L (3.5-5.1); PROTEIN TOTAL,TP 7.2 g/dL (6.4-8.2); TROPONIN I HIGH SENSITIVITY 5.4 pg/ml (<=60.4)
[2024-10-04 19:50] LABS: PROTHROMBIN TIME 10.9 sec (9.0-11.5)
[2024-10-05 00:12] VITALS: BP 127/79; PULSE 70
[2024-10-05] MEDS ORDERED: Sodium Chloride 0.9% 10 ML Syringe FLUSH PRN (00:17)
== END 2024-10-04 20:15 | disposition home or self-care (01) ==
LOC: LB.ED 18:33
DX: F41.9 Anxiety disorder, unspecified (principal); I10 Essential (primary) hypertension; E78.00 Pure hypercholesterolemia, unspecified; K21.9 Gastro-esophageal reflux disease without esophagitis; E66.9 Obesity, unspecified; Z68.31 Body mass index [BMI] 31.0-31.9, adult; Z86.16 Personal history of COVID-19; Z79.899 Other long term (current) drug therapy; Z79.84 Long term (current) use of oral hypoglycemic drugs; Z88.8 Allergy status to other drugs, medicaments and biological substances
CPT/HCPCS: 36415; 71045; 80053; 83735; 84484; 85025; 85379; 85610; 85730; 93005; 93010; 96374; 99284; 99285-25; J3360

== ENCOUNTER 2024-10-06 21:32 | Emergency (ER) | payer MEDICARE, OTHER ==
[~2024-10-06 21:32] MED LIST: diazePAM 5 MG Tab ONE
[2024-10-06] MEDS: diazePAM 5 MG/ML MDV IV ONE ×2 (21:52→22:19)
[2024-10-06 23:15] VITALS: BP 130/77; PULSE 62
== END 2024-10-06 22:40 | disposition home or self-care (01) ==
LOC: LB.ED 21:32
DX: F41.9 Anxiety disorder, unspecified (principal); E78.00 Pure hypercholesterolemia, unspecified; I10 Essential (primary) hypertension; Z88.5 Allergy status to narcotic agent; Z79.82 Long term (current) use of aspirin; Z79.899 Other long term (current) drug therapy; Z79.01 Long term (current) use of anticoagulants; Z86.16 Personal history of COVID-19
CPT/HCPCS: 96374; 96376; 99283; A9270; J3360; 99282

== ENCOUNTER 2024-10-07 18:10 | Emergency (ER) | payer MEDICARE, OTHER ==
[2024-10-07 18:48] VITALS: BP 148/86; PULSE 75
[2024-10-07] MEDS: Lidocaine 2% Jelly 5 ML Urojet ONE (19:11)
[2024-10-07] MEDS: Lidocaine 2% Jelly 10 ML Urojet MUCMEM ONE (19:14)
[2024-10-07] MEDS: Magnesium Hydroxide 400 MG/5 ML Susp 30 ML Cup PO ONE (19:49)
== END 2024-10-07 19:52 | disposition home or self-care (01) ==
LOC: LB.ED 18:10
DX: N40.1 Benign prostatic hyperplasia with lower urinary tract symptoms (principal); R33.8 Other retention of urine; F41.9 Anxiety disorder, unspecified; K59.00 Constipation, unspecified; E78.00 Pure hypercholesterolemia, unspecified; I10 Essential (primary) hypertension; E66.9 Obesity, unspecified; Z88.8 Allergy status to other drugs, medicaments and biological substances; Z79.899 Other long term (current) drug therapy; Z79.82 Long term (current) use of aspirin; Z86.16 Personal history of COVID-19
CPT/HCPCS: 51702; 99283; A9270

== ENCOUNTER 2024-10-09 06:47 | Emergency (ER) | payer MEDICARE, OTHER ==
[2024-10-09 07:07] VITALS: PULSE 76
[2024-10-09] MEDS: diazePAM 10 MG Tab PO ONE (07:29)
[2024-10-09] MEDS ORDERED: Doxycycline 100 MG Cap ONE (07:30)
[2024-10-09] MEDS: Lidocaine 2% Jelly 5 ML Urojet MUCMEM ONE (07:45)
[2024-10-09 08:31] VITALS: BP 163/87
[2024-10-09] MEDS: Lidocaine 2% Jelly 10 ML Urojet MUCMEM ONE (08:47)
== END 2024-10-09 08:00 | disposition home or self-care (01) ==
LOC: LB.ED 06:47
DX: N40.1 Benign prostatic hyperplasia with lower urinary tract symptoms (principal); R33.8 Other retention of urine; K59.00 Constipation, unspecified; E78.00 Pure hypercholesterolemia, unspecified; I10 Essential (primary) hypertension; Z98.890 Other specified postprocedural states; Z88.5 Allergy status to narcotic agent; Z79.82 Long term (current) use of aspirin; Z79.899 Other long term (current) drug therapy; Z79.01 Long term (current) use of anticoagulants
CPT/HCPCS: 51702; 99283; A9270-GY

== ENCOUNTER 2024-12-23 15:59 | Emergency (ER) | payer MEDICARE, OTHER ==
[2024-12-23] MEDS ORDERED: Sodium Chloride 0.9% 10 ML Syringe FLUSH PRN (17:19)
[2024-12-23 17:39] LABS: BASOPHILS ABSOLUTE AUTO 0.01 K/uL (0.02-0.10); BASOPHILS PERCENT AUTO 0.1 % (0.0-0.5); EOSINOPHILS ABSOLUTE AUTO 0.00 K/uL (0.04-0.40); EOSINOPHILS PERCENT AUTO 0.0 % (1.0-5.0); LYMPHOCYTES ABSOLUTE AUTO 0.30 K/uL (1.50-4.00); LYMPHOCYTES PERCENT AUTO 1.7 % (20.0-40.0); MEAN PLATELET VOLUME 8.9 fL (6.0-10.0); MONOCYTES ABSOLUTE AUTO 0.47 K/uL (0.20-0.80); MONOCYTES PERCENT AUTO 2.7 % (3.0-10.0); NEUTROPHILS ABSOLUTE AUTO 16.69 K/uL (2.00-7.50); NEUTROPHILS PERCENT AUTO 95.5 % (45.0-70.0); PLATELET COUNT,PLT 219 K/uL (150-400); RED BLOOD CELL COUNT 3.94 M/uL (4.50-6.50); RED CELL DISTRIBUTION WIDTH 12.7 % (11.0-16.0); WHITE BLOOD CELL COUNT,WBC 17.5 K/uL (4.0-11.0)
[2024-12-23] MEDS: LORazepam 2 MG/ML SDV IVPUSH ONE (17:49)
[2024-12-23 18:02] LABS: A/G RATIO 0.9 (0.8-2.0); ALANINE AMINOTRANSFERASE,ALT 27.0 U/L (12-78); ASPARTATE AMNIOTRANSFERASE,AST 29.0 U/L (15-37); BILIRUBIN TOTAL 0.9 mg/dL (0.0-1.0); BLOOD UREA NITROGEN,BUN 13.0 mg/dL (8-26); CARBON DIOXIDE,CO2 23.0 mmol/L (21.0-32.0); CHLORIDE,CL 100.0 mmol/L (98-107); CREATININE 1.13 mg/dL (0.70-1.30); EST CRCL DRUG DOSING (CG) 58.31 mL/min; ESTIMATED GFR 67.0 mL/min (>60); GLUCOSE RANDOM 127.0 mg/dL (74-100); POTASSIUM,K 3.6 mmol/L (3.5-5.1); PROTEIN TOTAL,TP 6.9 g/dL (6.4-8.2); SODIUM,NA 136.0 mmol/L (136-145); TROPONIN I HIGH SENSITIVITY 5.1 pg/ml (<=60.4)
[2024-12-23] MEDS: Iopamidol 755 Mg/ML 100 ML Bottle IV SCH (19:16)
[2024-12-23] MEDS: Sodium Chloride 0.9% 50 ML SDV FLUSH ONE (19:16)
[2024-12-23] MEDS: Magnesium Sulfat/D5W 1GM/100ML 1 GM in Premix Bag 1 BAG IV ONE (20:45)
[2024-12-23 21:32] LABS: APPEARANCE,URINE CLOUDY (CLEAR); GLUCOSE,URINE NEGATIVE (NEGATIVE); OCCULT BLOOD,URINE NEGATIVE (NEGATIVE)
[2024-12-23 21:38] LABS: SQUAMOUS EPITHELIAL CELLS,UR FEW /HPF
[2024-12-23 22:14] VITALS: BP 124/75; PULSE 101
== END 2024-12-23 21:54 | disposition home or self-care (01) ==
LOC: LB.ED 15:59
DX: N39.0 Urinary tract infection, site not specified (principal); K59.00 Constipation, unspecified; E83.42 Hypomagnesemia; F41.9 Anxiety disorder, unspecified; E78.00 Pure hypercholesterolemia, unspecified; I10 Essential (primary) hypertension; K21.9 Gastro-esophageal reflux disease without esophagitis; Z88.5 Allergy status to narcotic agent; Z79.899 Other long term (current) drug therapy
CPT/HCPCS: 36415; 71260; 74177; 80053; 81001; 83735; 84484; 85025; 85379; 87086; 93005; 93010; 96365; 96367; 96375; 99284; 99284-25; A9270-GY; J2060; J2270; J2543; J3475; Q9967

== ENCOUNTER 2025-02-05 18:01 | Emergency (ER) | payer MEDICARE, OTHER | END 2025-02-05 18:20 | disposition left against medical advice (07) | LOC: LB.ED 18:01 | DX: Z53.21 Procedure and treatment not carried out due to patient leaving prior to being seen by health care provider (principal) ==